=== PATIENT | male | born 1970 | race Caucasian/White ===

== ENCOUNTER 2022-09-14 18:58 | Emergency (ER) | payer OTHER ==
[~2022-09-14] VITALS: Ht 182.9 cm; Wt 83.5 kg
[~2022-09-14 18:58] MED LIST: CEPHALEXIN500 M1 PO; FLOMAX0.4 MG PO; LIPITOR10 MG PO; LISINOPRIL40 MG PO; MELOXICAM15 MG PO; VOLTAREN ARTHRI20 GM TOP
--- OUTSIDE RECORDS SUMMARY | 2022-09-14 19:06 | XMS ---
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 Martin has no Care Guidelines for this patient. Fausto VISIT COUNT (12 MO.) 2 [facility] [place]. TOTAL 2 NOTE: Visits indicate total known visits. ED/C VISIT TRACKING (12 MO.) 09/14/2022 18:[address] [facility] [place] TYPE: Emergency COMPLAINT: - CATH ISSUES 09/14/2022 08:21 [facility] [place] TYPE: Emergency COMPLAINT: - UNABLE TO URINATE INPATIENT VISIT TRACKING (12 MO.) No inpatient visits to display in this time frame [email or web address]
[2022-09-15] MEDS ORDERED: CIPRO500 MG PO (00:31)
[2022-09-15 00:55] VITALS: BP 116/68
== END 2022-09-15 00:58 | disposition home or self-care (01) ==
LOC: ED 18:58
DX: N39.0 Urinary tract infection, site not specified (principal); E86.0 Dehydration; T83.031A Leakage of indwelling urethral catheter, initial encounter; Y73.8 Miscellaneous gastroenterology and urology devices associated with adverse incidents, not elsewhere classified; N40.1 Benign prostatic hyperplasia with lower urinary tract symptoms; R33.8 Other retention of urine; I10 Essential (primary) hypertension; E78.5 Hyperlipidemia, unspecified; Z88.2 Allergy status to sulfonamides; Z88.1 Allergy status to other antibiotic agents; Z79.899 Other long term (current) drug therapy
CPT/HCPCS: 36415; 51798; 80053; 82553; 83605; 85025; 99284-25; J0696; J7121

== ENCOUNTER 2023-09-27 18:21 | Emergency (ER) | payer OTHER ==
[~2023-09-27] VITALS: Ht 167.6 cm; Wt 87.0 kg
[~2023-09-27 18:21] MED LIST changes: +CIPRO500 MG PO
[2023-09-27] MEDS ORDERED: LIDOCAINE 2% VISCOUS 6 ML SYR TOP ONE (20:15)
[2023-09-27 21:27] VITALS: BP 131/72
== END 2023-09-27 21:30 | disposition home or self-care (01) ==
LOC: ED 18:21
DX: R33.9 Retention of urine, unspecified (principal); C61 Malignant neoplasm of prostate; I10 Essential (primary) hypertension; E78.5 Hyperlipidemia, unspecified; Z88.1 Allergy status to other antibiotic agents; Z88.2 Allergy status to sulfonamides; Z79.899 Other long term (current) drug therapy; Z79.1 Long term (current) use of non-steroidal anti-inflammatories (NSAID)
CPT/HCPCS: 51702; 51798; 99283-25